=== PATIENT | female | born 1990 | race African-American/Black ===

== ENCOUNTER 2019-10-18 15:48 | Day surgery (SDC) | payer OTHER, MEDICAID ==
[2019-10-18 16:57] VITALS: BMI 37.0
[2019-10-18] MEDS ORDERED: hydrALAZINE 20 MG/ML VIAL SLOW IVP PRN (17:06)
[2019-10-18] MEDS ORDERED: Acetaminophen 500 MG TAB PO SCH (17:15)
[2019-10-18 18:18] LABS: Bacteria/HPF None Seen HPF (None Seen); Bilirubin Negative (Negative); Blood, Urine Negative (Negative); Clarity Clear (Clear); Glucose, Urine (Dipstick) Normal (Negative); Leukocyte 75 Leu/uL (Negative); Nitrite Negative (Negative); Protein, Urine (Dipstick) Negative (Neg-Trace); RBC/HPF 0-3 HPF (0-3); Squamous Epithelial 0-3 HPF (0-3); Urobilinogen Normal mg/dL (Less than 2); WBC/HPF None Seen HPF (0-3)
[2019-10-18] MEDS ORDERED: Lactated Ringer's 1,000 ML IV SCH (19:45)
[2019-10-18 20:30] LABS: FFN Internal QC Analyzer PASS (PASS); FFN Internal QC Cassette PASS (PASS); Fetal Fibronectin Negative (Negative)
[2019-10-18] MEDS ORDERED: Zolpidem Tartrate 5 MG TAB PO PRN (22:42)
--- NOTE | 2019-10-19 08:36 | SS ---
DATE OF ADMISSION: 10/18/2019 DATE OF DISCHARGE: 10/19/2019 PRIMARY OB: Dr. Jordi Hoang. CHIEF COMPLAINT: Upper respiratory symptoms, back pain and crampiness. HISTORY OF PRESENT ILLNESS: The patient is a 29-year-old, G7, P2 female with an intrauterine at 32 weeks and 6 days with the past medical history significant for 2 deliveries requiring cerclage placement. This , she has had a prophylactic cerclage and Lenore throughout the . The patient reports that she has been feeling a lot of crampiness and some back pain. She also has been experiencing a lot of pelvic pain for a while now. She also reports that she has had these feelings last time when she had her delivery and was coming in to make sure everything was okay. The patient reports upper respiratory symptoms, cough, stuffiness and she denies any fever. Denies any chest pain, shortness of breath. She has had some nausea. Denies vomiting. Denies diarrhea or constipation. Denies any new rashes. Again reports hip pains and lower back pains and crampiness of indeterminate duration or frequency. Denies vaginal bleeding, change in discharge, urinary urgency or frequency. PAST MEDICAL HISTORY: Negative. OBSTETRIC HISTORY: She has had 2 deliveries. PAST SURGICAL HISTORY: She has had three previous cerclages including this and an ACL repair. ALLERGIES: NO KNOWN DRUG ALLERGIES. MEDICATIONS: Prosperity weekly and Metrogel weekly. SOCIAL HISTORY: Denies drug, alcohol, tobacco use. We have had a long discussion, is having a lot of social pressures at home, trying to maintain care of her children, relationship with her in the presence of the aches and pains that she has been experiencing with this , making it difficult for her to function as she desires. OB LABS: Unavailable at the time of dictation. REVIEW OF SYSTEMS: Per HPI. PHYSICAL EXAMINATION: VITAL SIGNS: On initial presentation, blood pressure of 114/68, heart rate of 107, respiratory rate of 18, saturating 99% on room air, temperature 98.6. GENERAL: She appears to be in no acute distress. She is alert, oriented, cooperative, and pleasant to interact with. In our conversation one time, the patient became very tearful as she was communicating the stresses and frustrations that she has been experiencing. She is otherwise alert, oriented, cooperative, and pleasant to interact with. HEAD: Normocephalic and atraumatic. LUNGS: Clear to auscultation bilaterally. HEART: Has a regular rate and rhythm. ABDOMEN: Gravid and some tenderness present in her pelvis and her lower back. EXTREMITIES: Nontender. Nonedematous. Vulva without masses, lesions, or erythema. Cervix is closed and intact. heart tracing shows the fetus with a baseline in the 150s with moderate long-term variability, positive 15 x 15 accelerations, no decelerations. The tocometer showing some irritability with crampiness, contractions about every 2 to 3 minutes, sometimes irregularly spaced out more. fibronectin comes back negative. Urinalysis is negative for protein, trace ketones, negative nitrites, 75 leukocyte esterase, no white blood cells, no bacteria, no squamous cells, BP 3, negative for Trichomonas Gardnerella or Dot. Repeat exam. Given the patient's presence of contractions and history and presence of cerclage, the patient was observed overnight and hydrated. This morning, she reports that her aches and pains are much improved, that she does not feel a crampiness anymore. She reports that she slept well last night something that she has not done in a while. Repeat cervical exam, cervix is closed and cerclage feels intact. No blood or unusual discharge on the glove. heart tracing this morning shows the fetus with a baseline in the 140s with moderate long-term variability. Tocometer showing a little bit of irritability, but not felt by the patient. ASSESSMENT AND PLAN: The patient is a 29-year-old female, multiparous with history of deliveries and a cerclage in place. The patient reports she is feeling much better, was likely experiencing some irritability and contractions without evidence of labor that has resolved with hydration and rest. The patient is being discharged to home this morning, has instructions to follow up with her primary OB as scheduled and has been given labor precautions. The patient is being discharged home with Tylenol No. 3 to be taken two tablets at night before bed as the patient has not been sleeping well due to her pelvic pains that she has been experiencing for some time. This is an effort to help her sleep better and perhaps cope better with the other stresses and responsibilities of her life right now. She will go home with Tylenol No. 3, #10. Job ID: [id number]
== END 2019-10-19 08:20 | disposition home or self-care (01) ==
LOC: L&D/OP 15:48
PROVIDERS: ATTEND Obstetrics & Gynecology
DX: O99.89 Other specified diseases and conditions complicating pregnancy, childbirth and the puerperium (principal); R10.2 Pelvic and perineal pain; M54.5 Low back pain; R05 Cough; O09.213 Supervision of pregnancy with history of pre-term labor, third trimester; O34.33 Maternal care for cervical incompetence, third trimester; Z3A.32 32 weeks gestation of pregnancy
CPT/HCPCS: 81001; 82731; 87480; 87510; 87660